=== PATIENT | female | born 1930 | race Caucasian/White ===

== ENCOUNTER 2019-02-10 13:22 | Observation (INO) ==
--- NOTE | 2019-02-10 14:09 | Emergency Department Note ---
ED Disposition Clinical Impression: Gastroenteritis Pancreatitis Qualifiers: Chronicity: acute Pancreatitis type: unspecified pancreatitis type Acute pancr eatitis complication: unspecified Qualified Code(s): K85.90 - Acute pancreatitis without necrosis or infection, unspecified Disposition: Admitted As Inpatient Condition on Discharge: Fair Additional Instructions: will be admitted by Dr. Horner and continue IVF's and keep NPO and repeat labs in AM Referrals: Juliet Wilkins MD [Primary Care Provider] - Time of Disposition: 17:57 - Critical Care Critical Care Time: No Attestation: On 02/10/19, the high probability of a clinically significant, sudden or life threatening deterioration of the following system(s) required my full and direct attention, intervention and personal management. The time I documented below is in addition to time spent performing reported procedures but includes the following listed in this critical care notation. Medical Decision Making - Medical Records Medical records reviewed: Yes: I reviewed the patient's medical records. - Eric Inquiry Pt receiving controlled substance: Yes Eric was queried for this patient: Yes (5 presc. in past year) Reference #:: [id number] Risks and benefits of using a controlled substance: were not discussed with pt by me Comment: she sees a pain medicine doctor Vital Signs: 02/10/19 13:39 02/10/19 14:02 Temperature 98.6 F 98.6 F Temperature Source Oral Oral Pulse Rate [Right Brachial] 49 L 49 L Respiratory Rate 21 21 Blood Pressure [Right Arm] 140/51 L 140/51 L Blood Pressure Mean [Right Arm] 80 80 Blood Pressure Source [Right Arm] Automatic Cuff Automatic Cuff Blood Pressure Position [Right Arm] Sitting Sitting 02 Sat by Pulse Oximetry 96 96 Oxygen Delivery Method Room Air Room Air - Lab Data Lab results reviewed: Yes: I reviewed the patient's lab results. Lab Results 02/10/19 13:43: Urine Color Yellow, Urine Appearance Clear, Urine pH 7.0, Ur Specific [place] 1.020, Urine Protein 1+, Urine Glucose (UA) Negative, Urine Ketones Negative, Urine Blood Negative, Urine Nitrate Negative, Urine Bilirubin Negative, Urine Urobilinogen 0.2, Ur Leukocyte Esterase Negative 02/10/19 14:20: WBC 4.7 L, RBC 3.78 L, Hgb 11.8 L, Hct 37.8, MCV 100.2 H, MCH 31.3 H, MCHC 31.2 L, RDW 14.1, Plt Count 179, MPV 8.3, Neut % (Auto) 68.5, Lymph % (Auto) 21.5, [place] % (Auto) 7.6, Eos % (Auto) 1.9, Baso % (Auto) 0.6, Neut # (Auto) 3.2, Lymph # (Auto) 1.0, [place] # (Auto) 0.4, Eos # (Auto) 0.1, Baso # (Auto) 0.0 02/10/19 14:20: Sodium 137, Potassium 4.9, Chloride 102, Carbon Dioxide 30, Anion Gap 9.9, BUN 19 H, Creatinine 0.88, Estimated Creat Clear 32, Estimated GFR 61, Est GFR ( Amer) 74, Glucose 94, Calcium 9.5, Total Bilirubin 0.6, AST 19, ALT 18, Alkaline Phosphatase 65, Troponin I < 0.02, Total Protein 7.3, Albumin 3.8, Globulin 3.5 H, Albumin/Globulin Ratio 1.1, Lipase 1290 H Result diagrams: 02/10/19 14:20 02/10/19 14:20 Orders (Tests/Meds): ED MEDICATIONS Generic Name Dose Route Start Last Admin Trade Name Freq PRN Reason Stop Dose Admin Lactated Ringer's 1,000 mls @ 999 mls/hr 02/10/19 16:15 02/10/19 17:17 Lactated Ringer's 1000 Ml Bag IV 02/10/19 17:15 999 mls/hr .Q1H1M SANTIAGO Administration Sodium Chloride 10 ml 02/10/19 16:06 Sodium Chloride 0.9% 10ml Vial IV 03/12/19 16:05 NEEDED PRN dilute protonix Sodium Chloride 10 ml 02/10/19 16:22 Sodium Chloride 0.9% 10ml Vial IV 03/12/19 16:21 NEEDED PRN dilute protonix Discontinued Medications Generic Name Dose Route Start Last Admin Trade Name Freq PRN Reason Stop Dose Admin Diatrizoate Meglum/Diatrizoate Sod 15 ml 02/10/19 14:10 02/10/19 16:16 Gastrografin 66%-10% 30ml PO 02/10/19 14:11 Not Given ONCE ONE Diatrizoate Meglum/Diatrizoate Sod 30 ml 02/10/19 14:50 02/10/19 14:54 Gastrografin 66%-10% 30ml PO 02/10/19 14:51 30 ml ONCE ONE Administration Sodium Chloride 1,000 mls @ 999 mls/hr 02/10/19 14:15 02/10/19 14:54 Sod Chlor 0.9% 1000ml Bag IV 02/10/19 15:15 999 mls/hr .Q1H1M SANTIAGO Administration Ioversol 75 ml 02/10/19 16:46 02/10/19 16:48 Rad-Optiray 350 100ml Vial IV 02/10/19 16:47 75 ml ONCE ONE Administration Protocol Morphine Sulfate 4 mg 02/10/19 14:11 02/10/19 14:54 Morphine 4mg/Ml Syringe IV 02/10/19 14:12 4 mg ONCE ONE Administration Ondansetron HCl 4 mg 02/10/19 14:11 02/10/19 14:54 Zofran 4mg/2ml Vial IV 02/10/19 14:12 4 mg ONCE ONE Administration Pantoprazole Sodium 40 mg 02/10/19 16:06 02/10/19 17:17 Protonix 40mg Vial IV 02/10/19 16:07 40 mg ONCE ONE Administration Pantoprazole Sodium 40 mg 02/10/19 16:22 02/10/19 17:20 Protonix 40mg Vial IV 02/10/19 16:23 Not Given ONCE ONE Sodium Chloride 10 ml 02/10/19 16:46 02/10/19 16:48 Rad-Saline Flush 10ml Syringe IV 02/10/19 16:47 10 ml ONCE ONE Administration ORDERS Category Date Time Status Urine Culture Stat Micro 02/10/19 14:20 Received - Radiology Data #1 Image(s): Chest Image Reviewed: Yes I reviewed the patient's radiology results Preliminary Findings: Normal/NAD - CT Data CT Scan: Abdomen, Pelvis Time Received: 17:[address] Reviewed: Yes: I have viewed the radiologist's interpretation Findings Narrative: IMPRESSION: 1.. Air-fluid levels with throughout its small bowel and large bowel. Suspect for mild enteritis. Correlation required: Numerous moderate air-fluid levels involving borderline-slight distended small bowel loops. Questionable mild diffuse wall thickening involving some proximal small bowel loops as well Moderate air-fluid levels throughout nondilated right and transverse colon suspect for impending loose stool/and diarrhea. 2.. Post cholecystectomy changes with generous dilated common duct as well as mild dilated intrahepatic biliary radicles. This appears slightly more pronounced than on september 2018 CT lumbar spine, however I see the bilirubin is normal today thus this may likely reflect progressive post cholecystectomy changes of the biliary tree 3... Also note dilated pancreatic duct, most notable at head pancreas where it approaches ampulla. Measures up to 6 mm here but then tapers from this point. Suggest correlation with amylase and lipase today as well above findings are somewhat nonspecific but may benefit from GI consult follow-up particularly abnormal labs or abdominal symptoms persist 4..Pronounced degenerative disc changes lower L-spine which have shown slight progression at L3/4 since September 2018 Abdominal Pain HPI - General Stated Complaint: stomach pain and nasea Time Seen by Provider: 02/10/19 14:05 Mode of Arrival: Family Vehicle Source of Information: Patient Limitations: No Limitations Description of Symptoms (Recalled from ER Triage Doc. by RN): C/O ABDOMINAL PAIN AND HAS HX PANCREAS PROBLEMS AND ELEVATED LIVER ENZYMES. PCP INSTRUCTED DAUGHTER TO TAKE HER TO ED FOR ANY ABDOMINAL PAIN - History of Present Illness HPI narrative: Epigastric abd. pain for about 1 week. History of elevated Bilirubin in the past couple of months but has had GB and Appy removed and surgery on the low back in past as well. MD complaint: abdominal pain Onset (ago): week(s) Consistency: intermittent Location: periumbilical, epigastric Severity: severe Severity scale (1-10): 10 Quality: sharp - Related Data Home Medications Medication Instructions Recorded Confirmed Atorvastatin Calcium [Atorvastatin 40 mg PO DAILY 09/08/18 11/20/18 40mg Tab] Benazepril HCl 40 mg PO DAILY 09/08/18 11/20/18 Docusate Sodium [Colace] 100 mg PO DAILYP PRN 09/08/18 11/20/18 Donepezil HCl [Aricept 10mg 10 mg PO HS 09/08/18 11/20/18 tablet] Metoprolol Tartrate 50 mg PO BID 09/08/18 11/20/18 Clopidogrel Bisulfate [Plavix 75mg 75 mg PO DAILY 11/20/18 11/20/18 Tab] Hydrocodone/Acetaminophen 1 tab PO Q6HP PRN 11/20/18 11/20/18 [Hydrocodone-Acetamin 7.5-325] Memantine HCl 10 mg PO DAILY 11/20/18 11/20/18 Mirtazapine [Remeron 15mg tablet] 15 mg PO DAILY 11/20/18 11/20/18 Sitagliptin Phosphate [Januvia 50 mg PO DAILY 11/20/18 11/20/18 50mg Tablet] Allergies Allergy/AdvReac Type Severity Reaction Status Date / Time codeine Allergy Verified 11/16/18 11:13 fexofenadine [From Lyric] Allergy Verified 11/16/18 11:13 trazodone Allergy Verified 11/16/18 11:13 [facility] History - Hepatitis A Screen Drug use history?: No High risk sexual behaviors?: No History of sexually transmitted infection?: No Currently employed?: No Childcare worker?: No Do you have indoor plumbing?: Yes Do you have electricity?: Yes Attestation statement:: This patient has been screened for Hepatitis A risk factors. I have reviewed the patient's past medical history: Yes Medical History: Reports:: Diabetes Mellitus Type 2, Hyperlipidemia, Hypertension Denies:: Diabetes Mellitus Type 1, Seizures Other Medical History: Reports: Arthritis Other Surgeries: Yes: Appendectomy, Cholecystectomy - Social History Smoking Status: Current every day smoker Tobacco Type: cigarettes # Packs/Day (cigarettes): 1 Alcohol Intake: never Occupational Status: retired Housing: house Family Hx:: Non-contributory ROS Obtained: Yes All systems reviewed & no additional complaints - Constitutional Constitutional: Reports system reviewed and no additional complaints, except as docu - Eyes Eyes: Reports system reviewed and no additional complaints, except as docu - Cardiovascular Cardiovascular: Reports system reviewed and no additional complaints, except as docu - Respiratory Respiratory: Yes system reviewed and no additional complaints, except as docu - Gastrointestinal Gastrointestingal: Reports: system reviewed and no additional complaints, except as docu, as per HPI, abdominal pain, cramping, nausea - Neurologic Neurologic: Reports system reviewed and no additional complaints, except as docu, Reports as per HPI Physical Exam - General General appearance: alert, in distress (with abdominal pain) - Head Head exam: atraumatic - Eye Eye exam: Present: normal appearance - ENT ENT exam: Present: normal exam - Neck Neck exam: Present: normal inspection - Chest Chest inspection: Present: normal inspection - Respiratory Respiratory exam: Present: normal lung sounds bilaterally - Cardiovascular Cardiovascular exam: Present: regular rate, normal rhythm - Abdominal Exam Abdominal exam: Present: soft, tenderness (more in epigastrium but not really localized), normal bowel sounds - Neurological Exam Neurological exam: Present: alert, oriented X3 - Psychiatric Psychiatric exam: Present: normal affect
[2019-02-10 14:55] LABS: Basophils % 0.6 % (0.1-2.0); Eosinophils # 0.1 K/mm3 (0.0-0.4); Eosinophils % 1.9 % (0.1-12.0); Hematocrit 37.8 % (37.0-47.0); Hemoglobin 11.8 g/dL (12.2-16.2); Lymphocytes % 21.5 % (10-50); Mean Corpuscular HGB Conc 31.2 g/dL (31.8-35.4); Mean Corpuscular Volume 100.2 fl (81-99); Mean Platelet Volume 8.3 fl (7.4-10.4); Monocytes # 0.4 K/mm3 (0.1-1.0); Monocytes % 7.6 % (1.7-9.3); Neutrophils # 3.2 K/mm3 (1.8-7.8); Neutrophils % 68.5 % (37.0-80.0); Platelet Count 179 K/mm3 (142-424); Red Blood Count 3.78 M/mm3 (4.20-5.40); Red Cell Distribution Width 14.1 % (11.5-17.5); White Blood Count 4.7 K/mm3 (4.8-10.8)
[2019-02-10 15:09] LABS: Alanine Aminotransferase 18 U/L (12-78); Albumin Level 3.8 gm/dL (3.4-5.0); Albumin/Globulin Ratio 1.1 (1.1-1.8); Alkaline Phosphatase 65 U/L (46-116); Anion Gap 9.9 mEq/L (5-15); Aspartate Amino Transferase 19 U/L (15-37); Bilirubin,Total 0.6 mg/dL (0.2-1.0); Blood Urea Nitrogen 19 mg/dL (7-18); Calcium 9.5 mg/dL (8.5-10.1); Carbon Dioxide 30 mmol/L (21.0-32.0); Chloride 102 mmol/L (98-107); Globulin 3.5 gm/dl (1.3-3.2); Glucose 94 mg/dL (74-106); Sodium 137 mmol/L (136-145); Total Protein,Serum 7.3 gm/dL (6.4-8.2)
--- NOTE | 2019-02-11 07:35 | Pharmacy Consult Notes ---
[facility] Pharmacy VTE Monitoring - Patient Demographics Admission date: 02/10/19 Report Date: 02/11/19 Time: 07:34 Allergies/Adverse Reactions: Patient Allergies codeine Allergy (Verified 11/16/18 11:13) fexofenadine [From Lyric] Allergy (Verified 11/16/18 11:13) trazodone Allergy (Verified 11/16/18 11:13) Height: 1.55 m Weight: 51.057 kg Patient Problems: Current Active Problems Gastroenteritis (Acute) Pancreatitis (Acute) - VTE Risk Labs: VTE Related Lab Results Hgb 11.8 g/dL (12.2-16.2) L 02/10/19 14:20 Hct 37.8 % (37.0-47.0) 02/10/19 14:20 Plt Count 179 K/mm3 (142-424) 02/10/19 14:20 BUN 19 mg/dL (7-18) H 02/10/19 14:20 Creatinine 0.88 mg/dL (0.55-1.02) 02/10/19 14:20 Estimated Creat Clear 32 mL/min (50-200) 02/10/19 14:20 VTE Score: 6 VTE Risk Level: Moderate Risk - Prophylaxis VTE Prophylaxis Ordered?: Yes Types of VTE Prophylaxis: TEDS Knee High Location of Applied Device: Bilateral Lower Extremeties - VTE Diagnosis Confirmed Treatment or plan recommended: Continue Current Treatment
--- NOTE | 2019-02-11 08:20 | History & Physical Report ---
*Admission Date: 02/10/19 *Chief complaint: Abdominal pain *History of present illness: 88-year-old white female with dementia and chronic opiate use who presented to the emergency department at the behest of her family because of abdominal pain and poor oral intake over the past couple of days. She has been a lifelong resident of [place], [place], but over the past several months has moved here to live with her son and his and is planning on making this her permanent residence. ER work-up initially was consistent with pancreatitis with elevated lipase without amylase elevation, but patient's clinical picture was not consistent with this diagnosis with lower abdominal pain on exam not epigastric pain, and CT scan showed no evidence of pancreatic inflammation but did show evidence of bowel enteritis. Patient was admitted to hospital for IV fluids, stool testing if diarrhea started and pain control. This morning on rounds she states she feels better, is tolerating clear liquids well and has much better abdominal pain. She notes her main complaint today is right leg pain that is been ongoing for "weeks." She has quite a bit of memory deficit regarding her medications, current social situation and medical history. [facility] History I have reviewed the patient's past medical history: Yes Medical History: Reports:: Dementia, Diabetes Mellitus Type 2, Hyperlipidemia, Hypertension Denies:: Cancer, Diabetes Mellitus Type 1, MRSA, Seizures *Have you ever received a pneumonia vaccine?: Yes *Have you received a flu vaccine this season?: No Other Medical History: Reports: Arthritis, Cataracts Other Surgeries: Yes: Appendectomy, Cholecystectomy, Colonoscopy Amputation: No Fractures: No - *Social History Educational Level: Completed College Smoking Status: Current every day smoker Tobacco Type: cigarettes # Packs/Day (cigarettes): 2 Alcohol Intake: never *Occupational Status:: retired Housing: house Household Members: family *Travel in the last 8 weeks: None Family Hx:: Cancer, Coronary Artery Disease, Heart Attack, Hypertension, Stroke, Alcoholism Review of Systems - Review of Systems Review of systems:: unable to obtain Other than leg pain and abdominal pain patient denies symptoms Meds Home Medications Medication Instructions Recorded Confirmed Type Atorvastatin Calcium [Atorvastatin 40 mg PO DAILY 09/08/18 11/20/18 History 40mg Tab] Benazepril HCl 40 mg PO DAILY 09/08/18 11/20/18 History Docusate Sodium [Colace] 100 mg PO DAILYP PRN 09/08/18 11/20/18 History Donepezil HCl [Aricept 10mg 10 mg PO HS 09/08/18 11/20/18 History tablet] Metoprolol Tartrate 50 mg PO BID 09/08/18 11/20/18 History Clopidogrel Bisulfate [Plavix 75mg 75 mg PO DAILY 11/20/18 11/20/18 History Tab] Hydrocodone/Acetaminophen 1 tab PO Q6HP PRN 11/20/18 11/20/18 History [Hydrocodone-Acetamin 7.5-325] Memantine HCl 10 mg PO DAILY 11/20/18 11/20/18 History Mirtazapine [Remeron 15mg tablet] 15 mg PO DAILY 11/20/18 11/20/18 History Sitagliptin Phosphate [Januvia 50 mg PO DAILY 11/20/18 11/20/18 History 50mg Tablet] Allergies Allergy/AdvReac Type Severity Reaction Status Date / Time codeine Allergy Verified 11/16/18 11:13 fexofenadine [From Lyirc] Allergy Verified 11/16/18 11:13 trazodone Allergy Verified 11/16/18 11:13 Exam Vital signs and Labs for Last 24 Hours: Temp Pulse Resp BP Pulse Ox 97.8 F 46 L 18 123/46 L 94 L 02/11/19 04:00 02/11/19 04:00 02/11/19 04:00 02/11/19 04:00 02/11/19 04:00 Laboratory Results - last 24 hr 02/10/19 13:43: Urine Color Yellow, Urine Appearance Clear, Urine pH 7.0, Ur Specific [place] 1.020, Urine Protein 1+, Urine Glucose (UA) Negative, Urine Ketones Negative, Urine Blood Negative, Urine Nitrate Negative, Urine Bilirubin Negative, Urine Urobilinogen 0.2, Ur Leukocyte Esterase Negative 02/10/19 14:20: WBC 4.7 L, RBC 3.78 L, Hgb 11.8 L, Hct 37.8, MCV 100.2 H, MCH 31.3 H, MCHC 31.2 L, RDW 14.1, Plt Count 179, MPV 8.3, Neut % (Auto) 68.5, Lymph % (Auto) 21.5, [place] % (Auto) 7.6, Eos % (Auto) 1.9, Baso % (Auto) 0.6, Neut # (Auto) 3.2, Lymph # (Auto) 1.0, [place] # (Auto) 0.4, Eos # (Auto) 0.1, Baso # (Auto) 0.0 02/10/19 14:20: Sodium 137, Potassium 4.9, Chloride 102, Carbon Dioxide 30, Anion Gap 9.9, BUN 19 H, Creatinine 0.88, Estimated Creat Clear 32, Estimated GFR 61, Est GFR ( Amer) 74, Glucose 94, Calcium 9.5, Total Bilirubin 0.6, AST 19, ALT 18, Alkaline Phosphatase 65, Troponin I < 0.02, Total Protein 7.3, Albumin 3.8, Globulin 3.5 H, Albumin/Globulin Ratio 1.1, Lipase 1290 H I & O for Last 24 hours: Intake & Output 02/08/19 02/09/19 02/10/19 02/11/19 11:59 11:59 11:59 11:59 Intake Total 1275 / 1275 Balance 1275 / 1275 Weight 112 lb 9 oz Narrative: Patient is awake, alert. Oriented x1. Pleasant and follows commands. Cranial nerves intact, oropharynx clear. Heart rate regular with soft early systolic murmur. No gallops. Lungs have good air movement. Clear. Abdomen soft, normal bowel sounds. Some tenderness in both lower quadrants, no rebound or guarding. No periumbilical or flank bruising. Distal extremities warm and well-perfused. No edema. Neurologic exam notable for significant memory loss but able to move all extremities well with no focal deficits. Assessment and Plan (1) Right leg pain Current visit: Yes Status: Acute Category: Medical Code(s): M79.604 - Pain in right leg Exam clear. PT evaluation to assess ambulation status. (2) Gastroenteritis Current visit: Yes Status: Acute Category: Medical Code(s): K52.9 - Noninfective gastroenteritis and colitis, unspecified Patient does not appear to have pancreatitis. I reordered labs for this morning. Advance diet cautiously. If diarrhea occurs she will need screen for C. difficile. Please note that enteritis symptoms were present on admission. (3) Dementia Current visit: No Status: Acute Category: Medical Code(s): F03.90 - Unspecified dementia without behavioral disturbance Restart medications when we have an accurate list from the family. Of note patient is on clopidogrel-uncertain reason for this, also patient is on apparently chronic opiates. Again, uncertain reason for this.
--- NOTE | 2019-02-12 08:02 | Progress Note ---
Internal Medicine - PN: Subj *Date: 02/12/19 *Time: 13:36 Interval history: Patient tolerating thin liquid diet overnight. No episodes of fever, nausea, vomiting. On interview this morning denies any abdominal pain and mainly complains of right leg pain that is hurt "for a long time". Difficult to obtain good interval history however given patient's dementia. Vitals normal. Afebrile. Exam Vital signs and Labs for Last 24 Hours: Temp Pulse Resp BP Pulse Ox 97.8 F 53 L 18 164/58 H 97 02/12/19 04:00 02/12/19 04:00 02/12/19 04:00 02/12/19 04:00 02/12/19 04:00 I & O for Last 24 hours: Intake & Output 02/09/19 02/10/19 02/11/19 02/12/19 23:59 23:59 23:59 23:59 Intake Total 3918 / 3918 Output Total 450 / 450 500 / 500 Balance 3468 / 3468 -500 / -500 Weight 51.029 kg 51.057 kg 51.057 kg Microbiology Reports for the Last 24 Hours: Microbiology 02/10/19 14:20 Urine,Clean Catch Urine Culture - Preliminary NO GROWTH AFTER 24 HOURS Narrative: Patient is awake, alert. Oriented x1. Laying diagonally in bed Pleasant and follows commands. Cranial nerves intact, oropharynx clear. Heart rate regular with soft early systolic murmur. No gallops. Lungs have good air movement. Clear. Abdomen soft, nondistended. Bowel sounds normoactive. Diffuse tenderness, significantly more tender in left upper quadrant with moaning and pain to deep palpation. Distal extremities warm and well-perfused. No edema. Neurologic exam notable for significant memory loss but able to move all extremities well with no focal deficits. Assessment and Plan (1) Right leg pain Current visit: Yes Status: Acute Category: Medical Code(s): M79.604 - Pain in right leg (2) Gastroenteritis Current visit: Yes Status: Acute Category: Medical Code(s): K52.9 - Noninfective gastroenteritis and colitis, unspecified (3) Dementia Current visit: No Status: Acute Category: Medical Code(s): F03.90 - Unspecified dementia without behavioral disturbance (4) Pancreatitis Current visit: Yes Status: Acute Qualifiers: Chronicity: acute Pancreatitis type: unspecified pancreatitis type Category: Medical Code(s): K85.90 - Acute pancreatitis without necrosis or infection, unspecified Given focal left upper quadrant abdominal pain, elevation in lipase, suspect pancreatitis. We will continue to slowly advance diet as tolerated. If symptoms do not improve, may repeat imaging as no acute process seen initially on abdominal CT. Clinically labs and exam finding however fit with diagnosis. - Assessment and plan all Dx Assessment and Plan for all problems:: 88-year-old female with concern for enteritis versus pancreatitis. Given exam finding and elevation in lipase, suspect pancreatitis. Continue to advance diet slowly. Requires inpatient management at this time.
[2019-02-12 08:06] LABS: Basophils % 0.9 % (0.1-2.0); Eosinophils # 0.1 K/mm3 (0.0-0.4); Eosinophils % 2.7 % (0.1-12.0); Hematocrit 40.5 % (37.0-47.0); Hemoglobin 12.7 g/dL (12.2-16.2); Lymphocytes # 1.4 K/mm3 (0.7-4.5); Lymphocytes % 40.1 % (10-50); Mean Corpuscular HGB Conc 31.4 g/dL (31.8-35.4); Mean Corpuscular Volume 103.1 fl (81-99); Mean Platelet Volume 8.7 fl (7.4-10.4); Monocytes # 0.3 K/mm3 (0.1-1.0); Neutrophils # 1.8 K/mm3 (1.8-7.8); Neutrophils % 49.3 % (37.0-80.0); Platelet Count 145 K/mm3 (142-424); Red Blood Count 3.93 M/mm3 (4.20-5.40); Red Cell Distribution Width 14.3 % (11.5-17.5); White Blood Count 3.6 K/mm3 (4.8-10.8)
[2019-02-12 08:21] LABS: Albumin Level 3.6 gm/dL (3.4-5.0); Albumin/Globulin Ratio 1.1 (1.1-1.8); Anion Gap 12.3 mEq/L (5-15); Bilirubin,Total 0.5 mg/dL (0.2-1.0); Calcium 9.1 mg/dL (8.5-10.1); Globulin 3.3 gm/dl (1.3-3.2); Total Protein,Serum 6.9 gm/dL (6.4-8.2)
--- NOTE | 2019-02-13 08:30 | Discharge Summary ---
General - General Admission date:: 02/10/19 Discharge date: 02/13/19 HPI HPI: 88-year-old white female with dementia and chronic opiate use who presented to the emergency department at the behest of her family because of abdominal pain and poor oral intake over the past couple of days. She has been a lifelong resident of [place], [place], but over the past several months has moved here to live with her son and his and is planning on making this her permanent residence. ER work-up initially was consistent with pancreatitis with elevated lipase without amylase elevation, but patient's clinical picture was not consistent with this diagnosis with lower abdominal pain on exam not epigastric pain, and CT scan showed no evidence of pancreatic inflammation but did show evidence of bowel enteritis. Patient was admitted to hospital for IV fluids, stool testing if diarrhea started and pain control. This morning on rounds she states she feels better, is tolerating clear liquids well and has much better abdominal pain. She notes her main complaint today is right leg pain that is been ongoing for "weeks." She has quite a bit of memory deficit regarding her medications, current social situation and medical history. Hospital Course Hospital Course: Patient was admitted to hospital. CT scan showed no evidence of pancreatitis, also metabolic testing was consistent with elevated lipase but not amylase, white counts or electrolyte deficiencies. Patient was made n.p.o. and cautiously restarted diet as it was felt that she had more of an enteritis picture. She responded well this and was able to tolerate slow advance diet. Patient has significant problems with limping and immobility. PT evaluated her and felt that she would benefit from physical therapy, patient lives at home with her son and [id number] and they are willing to take her home and begin PT with home health. Plan will be to discharge home today. Low-fat diet. Tylenol for her arthritic pain, home health for PT/OT evaluation. Please note that patient is unable to leave her home without difficulty because of immobility and pain. Objective Vital signs: Temp Pulse Resp BP Pulse Ox 98.6 F 63 18 145/62 H 91 L 02/13/19 04:00 02/13/19 04:00 02/13/19 04:00 02/13/19 04:00 02/13/19 04:00 Narrative: Patient is pleasant, oriented x2 only. ENT exam clear, no JVD. Anterior lung christine are clear. Heart rate regular. Abdomen soft, very minimal epigastric tenderness but vastly improved. No edema or clubbing or cyanosis. Results Labs on day of discharge: Labs from last 24 hours 02/12/19 07:35 Lipase 471 H DS: Diagnosis - Discharge Diagnosis (1) Right leg pain Status: Chronic (2) Gastroenteritis Status: Acute (3) Dementia Status: Chronic (4) Pancreatitis Status: Ruled-out Discharge Plan - Patient Discharge Instructions ACTIVITY: Limited activity DIET: low fat, low cholesterol Patient Instructions: Diarrhea, Viral Gastroenteritis, Fat-Restricted Diet, DI for Viral Gastroenteritis -- Adult, DI for Bacterial Gastroenteritis -- Adult, DI for Viral Gastroenteritis -- Child - Follow up Plan Follow up with: Katty Carrera APRN [Nurse Practitioner] - 1 week Disposition: Home Health Service Home Medications: Home Medications Medication Instructions Recorded Confirmed Type Atorvastatin Calcium [Atorvastatin 40 mg PO HS 09/08/18 02/11/19 History 40mg Tab] Benazepril HCl 40 mg PO DAILY 09/08/18 02/11/19 History Docusate Sodium [Colace] 100 mg PO BIDP PRN 09/08/18 02/11/19 History Donepezil HCl [Aricept 10mg 10 mg PO DAILY 09/08/18 02/11/19 History tablet] Metoprolol Tartrate 50 mg PO BID 09/08/18 02/11/19 History Clopidogrel Bisulfate [Plavix 75mg 75 mg PO DAILY 11/20/18 02/11/19 History Tab] Mirtazapine [Remeron 15mg tablet] 15 mg PO HS 11/20/18 02/11/19 History Sitagliptin Phosphate [Januvia 50 mg PO DAILY 11/20/18 02/11/19 History 50mg Tablet] Amlodipine Besylate [Amlodipine 5 mg PO DAILY 02/11/19 02/11/19 History 5mg tab] Aspirin [Aspirin 81mg EC Tab] 81 mg PO DAILY 02/11/19 02/11/19 History Cyanocobalamin (Vitamin B-12) 500 mcg PO DAILY 02/11/19 02/11/19 History [Vitamin B-12] Hydrocod/Acet 5/325 mg [[place] 1 tab PO BIDP PRN 02/11/19 02/11/19 History 5/325mg tablet] Prescriptions/Medication Reconciliation: Continued Donepezil HCl [Aricept 10mg tablet] 10 mg PO DAILY Metoprolol Tartrate 50 mg PO BID Docusate Sodium [Colace] 100 mg PO BIDP PRN PRN Reason: stool softner Benazepril HCl 40 mg PO DAILY Amlodipine Besylate [Amlodipine 5mg tab] 5 mg PO DAILY Aspirin [Aspirin 81mg EC Tab] 81 mg PO DAILY Cyanocobalamin (Vitamin B-12) [Vitamin B-12] 500 mcg PO DAILY Hydrocod/Acet 5/325 mg [[place] 5/325mg tablet] 1 tab PO BIDP PRN PRN Reason: PAIN Mirtazapine [Remeron 15mg tablet] 15 mg PO HS Sitagliptin Phosphate [Januvia 50mg Tablet] 50 mg PO DAILY Discontinued Atorvastatin Calcium [Atorvastatin 40mg Tab] 40 mg PO HS Clopidogrel Bisulfate [Plavix 75mg Tab] 75 mg PO DAILY - Problem Reconciliation Problems Reviewed?: Yes
== END 2019-02-13 12:35 | disposition home health service (06) ==
LOC: UTC 13:22 → ER 13:22 → 2ND 13:22
PROVIDERS: ADMIT Internal Medicine Adolescent Medicine; ATTEND Internal Medicine Adolescent Medicine
DX: F03.90 Unspecified dementia, unspecified severity, without behavioral disturbance, psychotic disturbance, mood disturbance, and anxiety; E11.9 Type 2 diabetes mellitus without complications; K52.9 Noninfective gastroenteritis and colitis, unspecified; I10 Essential (primary) hypertension; R74.8 Abnormal levels of other serum enzymes; E78.5 Hyperlipidemia, unspecified; Z88.6 Allergy status to analgesic agent; Z79.84 Long term (current) use of oral hypoglycemic drugs; R26.89 Other abnormalities of gait and mobility; Z72.0 Tobacco use; M79.604 Pain in right leg; Z79.899 Other long term (current) drug therapy; Z79.02 Long term (current) use of antithrombotics/antiplatelets; Z79.82 Long term (current) use of aspirin; K85.90 Acute pancreatitis without necrosis or infection, unspecified; R26.0 Ataxic gait; Z88.8 Allergy status to other drugs, medicaments and biological substances
CPT/HCPCS: 36415; 71010; 71045; 74177; 80053; 81003; 83690; 84484; 85025; 87086; 96365; 96375; 97116; 97161; 97165; 97530; 97535; 99284; G0378; J2405; Q9967